=== PATIENT | male | born 1960 | race Caucasian/White ===

== ENCOUNTER 2021-09-09 23:43 | Emergency (ER) | payer OTHER ==
[~2021-09-09] VITALS: Ht 175.3 cm; Wt 95.7 kg
[2021-09-10] MEDS ORDERED: MAG HYDROX/AL HYDROX/SIMETH 30 ML LIQUID UDC PO ONE
[2021-09-10] MEDS ORDERED: KETOROLAC TROMETHAMINE 15 MG INJ IM ONE
[2021-09-10] MEDS ORDERED: METHOCARBAMOL 500 MG TABLET PO ONE
[2021-09-10] MEDS ORDERED: AMIT25TA9 PO (00:02)
[2021-09-10] MEDS ORDERED: ACET-2154 PO (00:02)
[2021-09-10] MEDS ORDERED: TRAZ-182 PO (00:02)
[2021-09-10] MEDS ORDERED: DICL100G31 TP (00:02)
[2021-09-10] MEDS ORDERED: POLY17PO4 PO (00:02)
[2021-09-10] MEDS ORDERED: ESCI10TA PO (00:02)
[2021-09-10] MEDS ORDERED: SIME125C81 PO (00:02)
[2021-09-10] MEDS ORDERED: ACET-73 PO (00:02)
[2021-09-10] MEDS ORDERED: METH-806 PO (00:02)
[2021-09-10] MEDS ORDERED: KETOROLAC TROMETHAMINE 15 MG INJ ONE (00:09)
[2021-09-10] MEDS ORDERED: METHOCARBAMOL 500 MG TABLET ONE ×2 (00:10→00:16)
--- NOTE | 2021-09-10 00:12 | NUR ---
out for ct scan of abdomen
[2021-09-10] MEDS ORDERED: MAG HYDROX/AL HYDROX/SIMETH 30 ML LIQUID UDC ONE (00:14)
[2021-09-10 00:15] LABS: HEMATOCRIT 38.6 % (36.7-47.1); MEAN CORPUSCULAR HEMOGLOBIN 30.8 uug (23.8-33.4); MEAN CORPUSCULAR VOLUME 91.4 fL (73.0-96.2); PLATELET COUNT (AUTO) 282 K/uL (152-348)
[2021-09-10 00:16] LABS: CREATININE 1.3 mg/dL (0.6-1.3); POTASSIUM 3.7 mmol/L (3.5-5.1)
--- NOTE | 2021-09-10 00:18 | NUR ---
back from ct scan
[2021-09-10 00:22] LABS: BILIRUBIN,TOTAL 1.4 mg/dL (0.2-1.0); TOTAL PROTEIN, SERUM 7.1 g/dL (6.4-8.2)
[2021-09-10 00:31] LABS: *BILIRUBIN,URIN NEGATIVE (NEGATIVE); *BLOOD, URINE NEGATIVE (NEGATIVE); *CLARITY,URINE CLEAR (CLEAR); *COLOR,URINE YELLOW (YELLOW); *KETONES,URINE TRACE (NEGATIVE); *UROBILINOGEN,URINE 0.2 E.U./dl (NORMAL); LEUKOCYTE ESTERASE ,URINE NEGATIVE (NEGATIVE); NITRITE, URINE NEGATIVE (NEGATIVE); PH,URINE 5.5 (5.0-8.0); UGLUCOSE NEGATIVE (NEGATIVE)
--- NOTE | 2021-09-10 01:41 | NUR ---
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
--- NOTE | 2021-09-10 01:42 | NUR ---
patient is sleeping soundly , arousable to name , oriented to name and place and date , records and copy of lab work ct scan results given to emt , cell phone and belongings sent with the patient
[2021-09-10 01:51] VITALS: BP 133/69
== END 2021-09-10 01:53 ==
LOC: ER 23:51
DX: R10.9 Unspecified abdominal pain (principal); J44.9 Chronic obstructive pulmonary disease, unspecified; Z88.6 Allergy status to analgesic agent; Z88.0 Allergy status to penicillin; M19.90 Unspecified osteoarthritis, unspecified site; F32.9 Major depressive disorder, single episode, unspecified; Z79.899 Other long term (current) drug therapy
CPT/HCPCS: 36415; 74176; 80053; 81003; 83690; 85025; 96372; 99284; J1885